=== PATIENT | female | born 1990 | race Caucasian/White ===

== ENCOUNTER 2024-09-18 20:14 | Inpatient (IN) | payer OTHER ==
[2024-09-18 20:53] VITALS: BMI 24.0
[2024-09-18] MEDS ORDERED: DICYCLOMINE HCL 10 MG CAPSULE PO PRN (21:17)
[2024-09-18] MEDS ORDERED: NALOXONE (NARCAN) HCL 4 MG/0.1 ML SPRAY NS PRN (21:17)
[2024-09-18] MEDS ORDERED: BISMUTH SUBSALICYLATE 524 MG/30 ML PO PRN (21:17)
[2024-09-18] MEDS ORDERED: ACETAMINOPHEN 325 MG TABLET (FP) PO PRN (21:17)
[2024-09-18] MEDS ORDERED: MAGNESIUM HYDROX 2400MG/30ML ORAL SUSPENSION 30 ML CUP PO PRN (21:17)
[2024-09-18] MEDS ORDERED: ONDANSETRON *ODT* 4 MG TABLET SL PRN (21:17)
[2024-09-18] MEDS ORDERED: MAG HYDROX/AL HYDROX/SIMETH 30 ML UNIT-DOSE CUP PO PRN (21:17)
[2024-09-18] MEDS ORDERED: POLYETHYLENE GLYCOL (HEALTHYLAX) 3350 17 GM PACKET PO PRN (21:17)
[2024-09-18] MEDS ORDERED: LOPERAMIDE HCL 2 MG CAPSULE PO PRN (21:17)
[2024-09-18] MEDS ORDERED: BENZOCAINE/MENTHOL (CHLORASEPTIC ) LOZENGE MM PRN (21:17)
[2024-09-18] MEDS ORDERED: BENZONATATE 200 MG CAPSULE PO PRN (21:17)
[2024-09-18] MEDS ORDERED: IBUPROFEN 600 MG TABLET (FP) PO PRN (21:17)
[2024-09-18] MEDS ORDERED: IBUPROFEN 400 MG TABLET (FP) PO PRN (21:17)
[2024-09-18] MEDS ORDERED: NICOTINE POLACRILEX 2 MG LOZENGE BC PRN (21:17)
[2024-09-18] MEDS: MELATONIN 5 MG TABLETS PO SCH (22:29)
[2024-09-18] MEDS: THIAMINE 100 MG TABLET PO SCH (22:30)
[2024-09-19] MEDS: hydrOXYzine PAMOATE 25 MG CAPSULE (FP) PO PRN (01:30)
[2024-09-19] MEDS: PRENATAL VITAMINS W/ FOLIC ACID TABLET (FP) PO SCH (09:46)
[2024-09-19] MEDS: cloNIDine HCL 0.1 MG TABLET PO SCH (09:49)
[2024-09-19] MEDS: methaDONE HCL 10 MG TABLET PO ONE (09:52)
[2024-09-19] MEDS ORDERED: methaDONE HCL 10 MG TABLET PO PRN (11:24)
[2024-09-19] MEDS: NICOTINE POLACRILEX 2 MG GUM BUC PRN (13:43)
[2024-09-20] MEDS: methaDONE 40 MG, methaDONE 10 MG PO ONE (09:40)
[2024-09-20] MEDS: METHOCARBAMOL 500 MG TABLET PO PRN (12:45)
[2024-09-20] MEDS: AMMONIUM LACTATE 12% LOTION 225 GM BOTTLE TP SCH (22:34)
[2024-09-20] MEDS: guaiFENesin 600 MG TABLET.ER (FP) PO PRN (22:43)
[2024-09-21] MEDS: methaDONE 40 MG, methaDONE 20 MG PO ONE (09:44)
[2024-09-21] MEDS: NICOTINE 21 MG/24 HOURS TOPICAL PATCH TD SCH (10:50)
[2024-09-21] MEDS: cloNIDine HCL 0.1 MG TABLET PO PRN (12:12)
[2024-09-22] MEDS: methaDONE 40 MG, methaDONE 30 MG PO ONE (09:07)
[2024-09-22 09:38] VITALS: RESP 16
[2024-09-22 10:04] LABS: HEMATOCRIT 38.8 % (32.4-45.2); HEMOGLOBIN 13.7 GM/dL (10.7-15.3); MCH 31.4 pg (25.7-33.7); MCHC 35.2 g/dl (32.0-36.0); MEAN CELL VOLUME 89.1 fl (80-96); MEAN PLT VOLUME 7.7 fl (7.5-11.1); PLATELET COUNT 217 10^3/uL (134-434); RBC 4.36 M/mm3 (3.60-5.2); RDW 12.7 % (11.6-15.6); WHITE BLOOD COUNT 5.3 K/mm3 (4.0-10.0)
[2024-09-22 10:07] LABS: BASO % 0.5 % (0-2.0); EOS % 2.2 % (0-4.5); HEMATOCRIT 38.7 % (32.4-45.2); HEMOGLOBIN 13.6 GM/dL (10.7-15.3); LYMPH % 34.7 % (8-40); MCH 31.3 pg (25.7-33.7); MEAN CELL VOLUME 89.2 fl (80-96); MEAN PLT VOLUME 7.7 fl (7.5-11.1); MONO % 6.8 % (3.8-10.2); NEUT % 55.8 % (42.8-82.8); PLATELET COUNT 219 10^3/uL (134-434); RBC 4.34 M/mm3 (3.60-5.2); RDW 12.6 % (11.6-15.6); WHITE BLOOD COUNT 5.3 K/mm3 (4.0-10.0)
[2024-09-22 10:08] LABS: POTASSIUM 4.4 mmol/L (3.5-5.1)
[2024-09-22 10:15] LABS: CALCIUM 8.6 mg/dL (8.5-10.1)
[2024-09-22 10:16] LABS: ALBUMIN 3.7 g/dl (3.4-5.0); BLOOD UREA NITROGEN 12.9 mg/dL (7-18)
[2024-09-22 10:19] LABS: CREATININE 0.7 mg/dL (0.55-1.3)
[2024-09-22 10:20] LABS: BILIRUBIN,TOTAL 0.5 mg/dL (0.2-1)
[2024-09-22 10:21] LABS: TOT PROT 6.4 g/dl (6.4-8.2)
[2024-09-22] MEDS ORDERED: NALOXONE (NYS OPIOID OVERDOSE PROGRAM) 4 MG/0.1 ML SPRAY NS PRN (11:45)
[2024-09-22 13:17] VITALS: BP 98/63; PULSE 76; TEMP 96.9
[2024-09-22] MEDS: cloNIDine HCL 0.1 MG TABLET PO PRN (13:21)
[2024-09-22] MEDS ORDERED: SODIUM CHLORIDE NASAL SPRAY 44 ML BOTTLE NS SCH (22:00)
[2024-09-23] MEDS ORDERED: methaDONE HCL 40 MG DISPERSABLE TABLET PO ONE (10:00)
[2024-09-24] MEDS ORDERED: methaDONE 80 MG, methaDONE 10 MG PO ONE (10:00)
== END 2024-09-22 13:55 | disposition home or self-care (01) | DRG 773 ==
LOC: YASAS 20:14 → Y6N 22:18
PROVIDERS: ADMIT Allergy & Immunology; ATTEND Surgery
PROC: HZ2ZZZZ Detoxification Services for Substance Abuse Treatment (ICD-10-PCS; principal; 2024-09-18)
DX: F11.23 Opioid dependence with withdrawal (principal); F14.20 Cocaine dependence, uncomplicated; F17.290 Nicotine dependence, other tobacco product, uncomplicated; F19.280 Other psychoactive substance dependence with psychoactive substance-induced anxiety disorder; F19.282 Other psychoactive substance dependence with psychoactive substance-induced sleep disorder; J45.909 Unspecified asthma, uncomplicated; A60.03 Herpesviral cervicitis; Z62.810 Personal history of physical and sexual abuse in childhood; Z63.8 Other specified problems related to primary support group; Z88.7 Allergy status to serum and vaccine
CPT/HCPCS: 36415; 80053; 85025; 85027; 86780; 93005; 93010